=== PATIENT | female | born 1990 | race Caucasian/White ===

== ENCOUNTER 2017-12-26 10:47 | Outpatient (CLI) | payer OTHER ==
[2017-12-26 11:18] LABS: #Eosinphils 0.1 thou/uL (0.0-0.7); #Lymphocytes 1.2 thou/uL (1.20-3.40); #Monocytes 0.4 thou/uL (0.11-0.59); #Neutrophils 3.5 thou/uL (1.40-6.50); %Basophils 0.3 % (0.0-1.0); %Lymphocytes 23.7 % (21.0-51.0); %Monocytes 7.9 % (0.0-10.0); %Neutrophils 67.1 % (42.0-75.0); Hemoglobin 13.6 g/dL (12.0-16.0); Mean Corpuscular HGB CONC 33.1 g/dL (32.0-36.0); Mean Corpuscular Hemoglobin 30.1 pg (27.0-31.0); Mean Platelet Volume 8.1 fL (7.4-10.4); Platelet Count 311 thou/uL (130-400); RBC Distribution Width 11.4 % (11.5-14.5); Red Blood Cell (RBC) Count 4.51 mill/uL (4.20-5.40); White Blood Cell (WBC) Count 5.2 thou/uL (4.8-10.8)
[2017-12-26 11:37] LABS: ALT (SGPT) 18 U/L (8-55); AST (SGOT) 17 U/L (5-34); Albumin 4.9 g/dL (3.5-5.0); Alkaline Phosphatase 52 U/L (40-150); Anion Gap 13 mmol/L (10-20); BUN (Urea Nitrogen) 17 mg/dL (7.0-18.7); Bilirubin, Total 0.3 mg/dL (0.2-1.2); Calc. Creatinine Clearance 0 mL/min (70-130); Calcium 10.2 mg/dL (7.8-10.44); Carbon Dioxide 26 mmol/L (22-29); Chloride 104 mmol/L (98-107); Estimated GFR-MDRD Greater than 90; Globulin 2.8 g/dL (2.4-3.5); Glucose 93 mg/dL (70-105); Potassium 4.1 mmol/L (3.5-5.1); Protein, Total 7.7 g/dL (6.0-8.3); Sodium 139 mmol/L (136-145)
[2017-12-26 11:43] LABS: BHCG - Serum Negative (NEGATIVE); Pregs Control Background? CLEAR/WHITE (CLR/WHITE); Pregs Control Bar Appear? YES (CONTROL BAR)
== END 2017-12-26 10:48 | disposition home or self-care (01) ==
LOC: LABBT 10:47
PROVIDERS: ATTEND Surgery
DX: Z01.812 Encounter for preprocedural laboratory examination (principal); K64.4 Residual hemorrhoidal skin tags
CPT/HCPCS: 80053; 84703; 85025

== ENCOUNTER 2017-12-29 06:05 | Day surgery (SDC) | payer OTHER ==
[2017-12-26 11:24] VITALS: BMI 23.1
[2017-12-29] MEDS ORDERED: cefOXitin 2 GM VIAL ONE (06:28)
[2017-12-29] MEDS ORDERED: Sodium Chloride 0.9% 100 ML ONE (06:29)
[2017-12-29] MEDS ORDERED: Lidocaine 2% PF 5 ML VIAL ONE (06:38)
[2017-12-29] MEDS ORDERED: Bupivacaine/Epinephrine 0.25% 30 ML VIAL ONE (06:38)
[2017-12-29] MEDS ORDERED: Scopolamine 1.5 mg/72 hour Patch ONE (06:49)
[2017-12-29] MEDS ORDERED: Fentanyl 100 MCG/2 ML VIAL ONE (07:17)
[2017-12-29] MEDS ORDERED: Midazolam HCl 2 mg/2 ml Vial ONE (07:43)
[2017-12-29] MEDS ORDERED: Bacitracin Zinc Ointment 30 gm TUBE ONE (07:44)
--- NOTE | 2017-12-29 08:41 | OP ---
DATE OF PROCEDURE: 12/29/2017 PREOPERATIVE DIAGNOSIS: Posterior grade 4 hemorrhoids. SURGEON: Tavo Ingram M.D. PROCEDURE PERFORMED: Hemorrhoidectomy. INDICATIONS: A 27-year-old female who has had chronic anal fissures for some time and has developed a posterior sentinel pile that has become very difficult to care for due to hygiene issues and prurit us ani. The fissure is healed. She desired just to have the tagged removed. FINDINGS: A grade 4 hemorrhoid posterior. PROCEDURE: After informed consent was obtained, the patient was taken to the operating room, given g eneral mask anesthesia, placed in the lithotomy position. Perianal region was prepped and draped in usual fashion. A 4 quadrant anal block was performed utilizing 0.5% Marcaine. Then the bivalve anal retractor was inserted. The distal rectum and anal canal inspected. The fissure was healed. There was a posterior tag. This tag was grasped with an Allis forceps and excised utilizing the handheld LigaSure. It was sent to pathology for further analysis. Gelfoam impregnated with bacitracin was pl aced within the anal canal. A sterile bandage was applied. The patient tolerated the procedure well and was transferred to recovery in good condition. Sponge and needle count verified correct x2.
== END 2017-12-29 10:42 | disposition home or self-care (01) ==
LOC: SDC 06:05
PROVIDERS: ATTEND Surgery
PROC: 06BY3ZC Excision of Hemorrhoidal Plexus, Percutaneous Approach (ICD-10-PCS; principal; 2017-12-29)
DX: K64.3 Fourth degree hemorrhoids (principal); F41.9 Anxiety disorder, unspecified; Z79.899 Other long term (current) drug therapy
CPT/HCPCS: 88304; J0694; J2001; J2250; J3010; J7050

== ENCOUNTER 2024-10-12 21:05 | Emergency (ER) | payer SELFPAY ==
[2024-10-12 22:59] LABS: #Basophils 0.04 10x3/uL (0.0-0.2); #Eosinophils 0.11 10x3/uL (0.0-0.7); #Monocytes 0.50 10x3/uL (0.11-0.59); #Neutrophils 3.25 10x3/uL (1.40-6.50); %Basophils 0.7 % (0.0-1.0); %Eosinophils 1.9 % (0.0-10.0); %Lymphocytes 32.8 % (21.0-51.0); %Monocytes 8.6 % (0.0-10.0); %Neutrophils 55.8 % (42.0-75.0); Hematocrit 37.4 % (36.0-47.0); Hemoglobin 12.0 g/dL (12.0-16.0); Mean Corpuscular Hemoglobin 29.9 pg (27.0-31.0); Mean Corpuscular Volume 93.3 fL (78.0-98.0); Platelet Count 296 10x3/uL (130-400); Red Blood Cell (RBC) Count 4.01 mill/uL (4.20-5.40); White Blood Cell (WBC) Count 5.82 10x3/uL (4.8-10.8)
[2024-10-12 23:13] LABS: INR-International Normal Ratio 1.0; Prothrombin Time 13.1 sec (12.0-14.7)
[2024-10-12 23:14] LABS: PTT 33.0 sec (22.9-36.1)
[2024-10-12 23:18] LABS: ALT (SGPT) 12 U/L (Less than 34); AST (SGOT) 16 U/L (11-34); Albumin 4.3 g/dL (3.1-4.5); Alkaline Phosphatase 52 U/L (40-110); Anion Gap 15 mmol/L (10-20); BUN (Urea Nitrogen) 21 mg/dL (7.0-18.7); Bilirubin, Total 0.3 mg/dL (0.3-1.2); Calc. Creatinine Clearance 0 mL/min (70-130); Calcium 9.1 mg/dL (7.8-10.44); Carbon Dioxide 23 mmol/L (22-29); Chloride 107 mmol/L (98-107); Globulin 2.7 g/dL (2.4-3.5); Glucose 93 mg/dL (70-105); Potassium 3.9 mmol/L (3.5-5.1); Sodium 141 mmol/L (136-145)
== END 2024-10-12 23:58 | disposition home or self-care (01) ==
LOC: ERS 21:05
DX: I88.9 Nonspecific lymphadenitis, unspecified (principal)
CPT/HCPCS: 36415; 80053; 85025; 85610; 85730